=== PATIENT | male | born 1950 | race Caucasian/White ===

== ENCOUNTER 2020-03-02 09:39 | Emergency (ER) | payer MEDICARE, SELFPAY ==
--- NOTE | ~2020-03-02 | CT_ITS ---
EXAMINATION: CT wrist RT wo con DATE: 03/02/2020 10:56 INDICATION: Right wrist pain post fall with possible fracture on prior radiographs. TECHNIQUE: High resolution computed tomography (CT) of the right wrist was performed without intraven ous contrast. Additional sagittal and coronal reconstructions were performed. Automated exposure cont rol and iterative reconstruction technique were employed. The dose-length product was 355.09 mGy-cm. COMPARISON: None FINDINGS: Nondisplaced intra-articular fracture involving the palmar aspect of the radial styloid process. Byron tional nondisplaced coronally oriented fracture across the dorsal aspect of the triquetrum which exte nds to the dorsal aspect of the articular surface of the midcarpal joint. No other fractures identifi ed. Alignment remains essentially anatomic. There is prominent chondrocalcinosis at the wrist includi ng the triangular fibrocartilage complex with additional smaller mild chondrocalcinosis along the dis ghada pole of the scaphoid as well as at the first carpal metacarpal joint. Mild polyarticular osteoart hritis at the wrist, midcarpal, triscaphe, first carpometacarpal and at the visualized metacarpophala ngeal joints. There is associated degenerative subchondral cystic change at the distal pole of the sc aphoid, along the distal articular surface of the lunate as well as at the heads of the first, third and fourth metacarpals. IMPRESSION: 1. Nondisplaced intra-articular fracture at the radial styloid process and dorsum of the triquetrum. 2. Chondrocalcinosis and mild polyarticular osteoarthritis. Reviewed, dictated and finalized at location A. IMPRESSION: 1. Nondisplaced intra-articular fracture at the radial styloid process and dors um of the triquetrum. 2. Chondrocalcinosis and mild polyarticular osteoarthritis.
--- NOTE | ~2020-03-02 | XR_ITS ---
XR wrist RT min 3V 03/02/2020 10:06 Indication: Right wrist pain after fall Procedure: 5 views right wrist Comparison: No prior studies for comparison. Findings: There are possible nondisplaced radial styloid and scaphoid fractures. There is mild osteoa rthritis of the triscaphe and first CMC and MCP joints. There is subtle chondrocalcinosis distal to t he ulna. No significant soft tissue abnormality. Impression: 1: Possible nondisplaced radial styloid and scaphoid fractures. Consider correlation with CT. Reviewed, dictated and finalized at location B. Impression: 1: Possible nondisplaced radial styloid and scaphoid fractures. Consider correl ation with CT.
--- NOTE | 2020-03-02 09:44 | ED.UPPEXIN ---
HPI - Extremity Injury (Upper) General Chief Complaint: Extremity Injury, Upper Stated Complaint: wrist injury Time Seen by Provider: 03/02/20 09:44 History of Present Illness HPI narrative: Fall onto outstretched right hand yesterday. He had pain in the wrist immediately, but it was relatively mild. Today the pain has increased. He also noted significant swelling in the hand and wrist. No weakness numbness, wound. He also has mild pain in the right shoulder. Full ROM. No swelling or deformity. Related Data Allergies Allergy/AdvReac Type Severity Reaction Status Date / Time No Known Allergies Allergy Verified 03/02/20 10:22 Review of Systems Review of Systems: All systems reviewed & are unremarkable except as noted in HPI and below ENT: Denies dizziness Musculoskeletal: Musculoskeletal: Denies back pain Neurologic: Denies dizziness and Denies weakness [facility] Past Medical History Medical History (Updated 03/02/20 @ 11:51 by Donald Lazaro MD) Arthritis Social History Social History (Updated 03/02/20 @ 10:46 by Donald Lazaro MD) Living arrangements: with family Exam Const: General: healthy appearing, no acute distress and alert Orientation/consciousness: patient oriented x3 HENMT: Head: normal to inspection Cardio: Other: 2 + right radial pulse Skin: Other: Bruising and mild redness to right hand and wrist Neuro: General: patient oriented x3, moves all extremities, no focal motor deficits and CN's II-XI intact bilaterally Speech: normal speech Other: Motor and sensory grossly intact Extrem: Other: Tenderness to posterior right wrist. Mild tenderness to right AC joint. Course Vital Signs Vital signs: Vital Signs Pulse Rate 84 03/02/20 12:32 Respiratory Rate 18 03/02/20 12:32 Blood Pressure 134/80 03/02/20 12:32 Pulse Oximetry 100 03/02/20 12:32 Pulse Rate 84 03/02/20 12:32 Respiratory Rate 18 03/02/20 12:32 Blood Pressure 134/80 03/02/20 12:32 Pulse Oximetry 100 03/02/20 12:32 Procedures Orthopedic Splinting/Casting Injury #1: Side: right Splint: customized in ED OCL: short arm Pre-Procedure Neuro Vascular Exam: normal Post-Procedure Neuro Vascular Exam: normal MDM - Extremity Injury (Upper) MDM Narrative Medical decision making narrative: nondiplaced wrist fracture. Splinted. Will given ortho follow-up Imaging Data Radiologist's impression: ITS Impressions Wrist X-Ray 03/02/20 10:11 Impression: 1: Possible nondisplaced radial styloid and scaphoid fractures. Consider correlation with CT. Wrist CT 03/02/20 11:23 IMPRESSION: 1. Nondisplaced intra-articular fracture at the radial styloid process and dorsum of the triquetrum. 2. Chondrocalcinosis and mild polyarticular osteoarthritis. Discharge Plan Discharge Clinical Impression: Fracture of wrist Qualifiers: Encounter type: initial encounter Fracture type: closed Laterality: right Qualified Code(s): S62.101A - Fracture of unspecified carpal bone, right wrist, initial encounter for closed fracture Patient Disposition: Home, Self-Care Condition: Stable Instructions: Wrist Fracture in Adults (ED) Follow-up/Referrals: PHYSICIAN,TECHNICAL SERVICES ASSISTANT [Primary Care Provider] - Den Kathleen MD [Physician] - 1 Week Discharge Date/Time: 03/02/20 12:34
[2020-03-02 12:32] VITALS: BP 134/80; PULSE 84; RESP 18; O2SAT 100
== END 2020-03-02 12:34 | disposition home or self-care (01) ==
PROVIDERS: Emergency Provider Emergency Medicine
DX: S52.514A Nondisplaced fracture of right radial styloid process, initial encounter for closed fracture (principal); W19.XXXA Unspecified fall, initial encounter; M19.90 Unspecified osteoarthritis, unspecified site
CPT/HCPCS: 29125; 73110; 73200; 99284

== ENCOUNTER 2020-04-23 09:58 | Outpatient (NON) | payer MEDICARE, SELFPAY ==
[2020-04-24 01:06] LABS: SARS-CoV-2 RNA PCR Negative
== END 2020-04-23 09:59 ==
LOC: ANHCOVIDDT 09:59
PROVIDERS: Visit Provider Internal Medicine Endocrinology, Diabetes & Metabolism
DX: R09.89 Other specified symptoms and signs involving the circulatory and respiratory systems (principal); Z20.828 Contact with and (suspected) exposure to other viral communicable diseases
CPT/HCPCS: 87635; C9803; U0003

== ENCOUNTER 2023-08-01 08:10 | Emergency (ER) | payer MEDICARE, SELFPAY ==
[2023-08-01 08:13] VITALS: BP 124/95; PULSE 92; RESP 18; TEMP 36.6; O2SAT 100
--- NOTE | 2023-08-01 09:55 | PC.NURSE ---
pt up to desk inquiring about wait time. informed of dept status. pt states he is going to leave.
== END 2023-08-01 10:03 | disposition left against medical advice (07) ==
DX: M54.2 Cervicalgia (principal)
CPT/HCPCS: 99199